=== PATIENT | male | born 1955 | race Caucasian/White ===

== ENCOUNTER 2017-07-06 14:32 | Emergency (ER) | payer MEDICARE ==
[~2017-07-06] VITALS: Ht 175.3 cm; Wt 81.2 kg
[2017-07-06 14:34] VITALS: BP 153/98
== END 2017-07-06 15:26 | disposition home or self-care (01) ==
LOC: ED 15:15
DX: F33.8 Other recurrent depressive disorders (principal); F51.04 Psychophysiologic insomnia; I10 Essential (primary) hypertension
CPT/HCPCS: 99284